=== PATIENT | male | born 1990 | race Two or more races ===

== ENCOUNTER 2024-12-15 09:45 | Emergency (ER) | payer OTHER ==
[~2024-12-15] VITALS: Ht 170.2 cm; Wt 113.4 kg
[2024-12-15] MEDS ORDERED: CEFTRIAXONE SODIUM 1,000 MG VIAL IM STA (10:32)
[2024-12-15] MEDS ORDERED: TETANUS & DIPHTHERIA TOX,ADULT 0.5 ML VIAL IM STA (10:32)
[2024-12-15] MEDS ORDERED: ENALAPRILAT DIHYDRATE 2.5 MG/2 ML VIAL IV STA (10:34)
[2024-12-15] MEDS ORDERED: CEFTRIAXONE SODIUM 1,000 MG VIAL IV STA (10:36)
[2024-12-15] MEDS ORDERED: SODIUM CHLORIDE 0.45 % 500 ML IV STA (11:29)
[2024-12-15] MEDS ORDERED: LABETALOL HCL 100 MG/20 ML ML IV PUSH STA (11:29)
== END 2024-12-15 14:37 | disposition home or self-care (01) ==
LOC: ER 09:45
DX: S61.011A Laceration without foreign body of right thumb without damage to nail, initial encounter (principal); W27.0XXA Contact with workbench tool, initial encounter; Y93.89 Activity, other specified; Y92.89 Other specified places as the place of occurrence of the external cause; Y99.9 Unspecified external cause status